=== PATIENT | male | born 1955 | race African-American/Black ===

== ENCOUNTER 2024-02-17 23:58 | Emergency (ER) | payer BC ==
[~2024-02-17] VITALS: Ht 182.9 cm; Wt 70.0 kg
[2024-02-18] VITALS: BP 110/62; PULSE 72; RESP 16; TEMP 98.3; O2SAT 100
[2024-02-18] MEDS ORDERED: ACET-2708 MT (02:03)
== END 2024-02-18 02:12 | disposition home or self-care (01) ==
LOC: ER 02-18 00:09
DX: S06.0XAA Concussion with loss of consciousness status unknown, initial encounter (principal); Z85.810 Personal history of malignant neoplasm of tongue; W18.30XA Fall on same level, unspecified, initial encounter; Y93.89 Activity, other specified; Y92.89 Other specified places as the place of occurrence of the external cause; Y99.8 Other external cause status
CPT/HCPCS: 99284